=== PATIENT | male | born 1945 | race Caucasian/White ===

== ENCOUNTER 2023-08-14 07:05 | Day surgery (SDC) | payer OTHER ==
[2023-08-10 09:53] LABS: Absolute Eosinophils 0.4 K/uL (0-0.5); Absolute Lymphocytes (CBC) 1.1 K/uL (0.7-4.9); Absolute Monocytes 0.5 K/uL (0.1-1.3); Absolute Neutrophil 3.3 K/uL (1.8-8.0); Basophils % 0.7 % (0-1.3); Eosinophils % 7.6 % (0-4.4); Hematocrit 37.4 % (39.6-49.0); Hemoglobin 12.6 g/dL (13.6-17.9); Lymphocytes % 20.9 % (15.3-44.8); MCH 29.9 pg (27.0-35.0); MCHC 33.7 g/dL (32.0-36.0); MCV 88.6 fL (80-100); MPV 6.6 fL (7.6-11.3); Monocytes % 8.5 % (3.3-12.3); Neutrophils % 62.3 % (41.7-73.7); Nucleated Red Blood Cells % 0.3 % (0-0); Platelets 246 thou/uL (152-406); RBC Red Blood Cell Count 4.22 M/uL (4.33-5.43); Red Cell Distribution Width 15.4 % (12.1-15.2)
--- NOTE | 2023-08-10 09:59 | RAD REPORT ---
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 COMPARISON: No comparisons TECHNIQUE: PA and lateral views of the chest were obtained. FINDINGS: The lungs are hyperexpanded compatible with COPD. The heart is upper limit of normal in si ze. No fracture or aggressive bony process. IMPRESSION: COPD without acute process identified. The USPSTF recommends annual screening for lung cancer with low-dose CT (LDCT) in adults aged 50 to 8 0 years who have a 20 pack-year smoking history and currently smoke or have quit within the past 15 y ears.
[2023-08-10 10:09] LABS: Anion Gap 8.2 mEq/L (5.0-15.0); Potassium 4.2 mEq/L (3.5-5.1)
[2023-08-10 10:12] LABS: PT Prothrombin Time 10.5 SECONDS (9.5-12.5); PTT, Activated Partial Thromb 29.7 SECONDS (24.3-36.9); Protime INR 0.95
--- NOTE | 2023-08-10 11:49 | EKG ---
Test Date: 2023-08-10 Test Time: 09:47:33 Cost Manager: KRISTINE MEASUREMENT RESULTS: Intervals: Rate: 59 ME: 168 QRSD: 118 QT: 438 QTc: 433 [place]: P: 36 ME: 168 QRS: -15 T: 31 INTERPRETIVE STATEMENTS: Sinus bradycardia with sinus arrhythmia Low voltage QRS Right bundle branch block Abnormal ECG No previous ECG available for comparison Electronically Signed On 08-10-23 11:48:20 CDT by Neel Jackson
[2023-08-14] MEDS ORDERED: FENTANYL CITR 100 MCG/2 ML ONE (07:34)
[2023-08-14] MEDS ORDERED: HEPA 1000U/500MLS 2,000 UNIT/1,000 ML BAG IV ONE (07:34)
[2023-08-14] MEDS ORDERED: LIDOCAINE 1% 20 ML MDV ONE (07:34)
[2023-08-14] MEDS ORDERED: MIDAZOLAM HCL 2 MG/2 ML INJ ONE (07:35)
[2023-08-14] MEDS ORDERED: NA CHLORIDE 0.9% 500 ML ONE (07:35)
[2023-08-14] MEDS ORDERED: HEPARIN 10,000 UNIT/10 ML VIAL IV ONE (07:35)
[2023-08-14] MEDS ORDERED: TICAGRELOR 90 MG TABLET PO ONE (07:35)
[2023-08-14] MEDS ORDERED: NITROGLYCERIN/D5W 50 MG/250 ML BTL IV ONE (07:36)
[2023-08-14 08:13] VITALS: TEMP 97.1
--- NOTE | 2023-08-14 09:06 | OP ---
Date of Procedure: 08/14/2023 Surgeon: Chip Thomas Procedure Performed: Bilateral carotid angiogram. Indication For Procedure: Significant carotid artery disease, abnormal carotid duplex. Complications: None. Estimated Blood Loss: Less than 50 cc. Sedation Time: 30 minutes. Access: Right common femoral artery, closed by manual compression. Description Of Procedure: After risks, benefits, and alternatives were explained to the patient, the patient agreed to proceed with procedure and signed informed consent. The patient was brought back to the cardiac laborer drying department and prepped in sterile fashion. Time-out was performed and sedation was admi nistered. Right common femoral artery 4-Turkish sheath access was obtained using an ultrasound-guided micropuncture technique. Next, Woodard 1 catheter was advanced over a J-wire to the right common carot id artery. Images were obtained. Same catheter was used to engage the left common carotid artery. Images were obtained. At the end of the procedure, catheter was removed over a J-wire and sheath was removed. Manual compression applied. The patient was moved back to Recovery in stable condition. Findings: 1.Right common carotid artery is patent. 2.Right internal carotid artery proximal to mid 80% disease, then mild LI. 3.Right external carotid artery patent. 4.Left common carotid artery is patent. 5.Left internal carotid artery is ectatic, patent. 6.Left external carotid artery is patent. Assessment And Plan: Significant right internal carotid artery disease. Plan will be to consult Vas cular Surgery to evaluate for endarterectomy. If not, then stenting is an option. KEVIN/JOE Voice ID: [id number] Report ID: [id number]
[2023-08-14 12:42] VITALS: BP 121/64; O2SAT 98
== END 2023-08-14 11:40 | disposition home or self-care (01) ==
LOC: CCL 07:05
PROVIDERS: ATTEND Internal Medicine
DX: I65.21 Occlusion and stenosis of right carotid artery (principal); I10 Essential (primary) hypertension; E78.2 Mixed hyperlipidemia; I45.10 Unspecified right bundle-branch block; Z79.82 Long term (current) use of aspirin; Z79.84 Long term (current) use of oral hypoglycemic drugs; Z79.899 Other long term (current) drug therapy
CPT/HCPCS: 93005; 85025; 80048; 36415; 83721; 85610; 85730; 71046; 36222; 76937; C1893; J2001; J2250; J3010; J7040; 99152; 99153